=== PATIENT | male | born 1970 | race Caucasian/White ===

== ENCOUNTER 2019-01-06 10:36 | Emergency (ER) | payer MEDICAID ==
[~2019-01-06] VITALS: Ht 177.8 cm; Wt 103.6 kg
[2019-01-06 10:59] VITALS: BP 156/92
--- NOTE | 2019-01-06 11:31 | NUR ---
right knee pain after dropping chain saw on it approximately one month ago (not blade side); pain increasing, worse with ambulation CMS INTACT, MINIMAL SWELLING NOTED PROVIDER AT [id number] ACCORDINGLY
--- NOTE | 2019-01-06 12:00 | NUR ---
EMT AT BEDSIDE-PROVIDED WITH KNEE IMMOBILIZER/CRUTCHES PATIENT DEMONSTRATED SAFE CRUTCH USE
== END 2019-01-06 12:24 | disposition home or self-care (01) ==
LOC: ED 12:12
DX: S83.91XA Sprain of unspecified site of right knee, initial encounter (principal); X58.XXXA Exposure to other specified factors, initial encounter; Y93.89 Activity, other specified; Y92.009 Unspecified place in unspecified non-institutional (private) residence as the place of occurrence of the external cause; Y99.8 Other external cause status
CPT/HCPCS: 29505; 99283